=== PATIENT | female | born 1955 | race Caucasian/White ===

== ENCOUNTER 2017-04-09 18:12 | Emergency (ER) | payer OTHER ==
[2017-04-09 19:12] LABS: BASOPHILS % 0.5 (0.0-1.5); EOSINOPHILS % 0.9 % (0.0-6.8); MEAN CORPUSCULAR VOLUME 82.2 fl (80.0-100.0); MONOCYTES % 5.7 % (0.0-11.0); NEUTROPHILS # 6.5 # k/uL (1.4-7.7)
[2017-04-09 19:25] LABS: eGFR (African) > 60; eGFR (Non-African) > 60
--- NOTE | 2017-04-09 19:28 | Diagnostic Imaging Report ---
[facility] [address] [facility].[address] [address] Report Submission Date: Apr 09, 2017 7:15:08 PM CDT Patient Study Name: REMEDIOS MENDIOLA Date: Apr 09, 2017 6:52:00 PM CDT Modality Type: CT\SR Gender: F Description: CT BRAIN W/O CONTRAST : 57 Institution: [facility] Physician: BROCK ALCALA (INVOICE CLASSIFICATION CLERK) - ER Computed tomography of the head without contrast History: Altered mental status Findings: Transverse brain sections are obtained without contrast revealing mild cerebral atrophy.. Benz white differentiation is intact. There is no intracranial hemorrhage, mass lesion, fluid collection, or skull lesion. Visualized sinuses and mastoid air cells are clear. Impression: Mild cerebral atrophy. Electronically signed on Apr 09, 2017 7:15:08 PM CDT by: Lisandro GOSS
--- NOTE | 2017-04-09 19:42 | ED Physician Documentation ---
General Adult - HISTORIAN Historian: patient - HPI Stated Complaint: hot and cold flashes Chief Complaint: General Adult Further Comments: yes (62 year old female presents with complaints of chills, not feelng well, poor blood sugar control x 3 days. Visiting [place] for her mother in law's which she did not attend "I didn't feel well". Patient lives in [place]. PCP in [place]. Poor medical case manager, old records reviewed.) - ROS CONST: weakness, chills. denies: sweating, recent illness, weight loss EYES/ENT: none CVS/RESP: none GI/: none MS/SKIN/LYMPH: other (pain all over). denies: none, calf pain, neck pain, joint pain, leg swelling, rash, swollen glands, leg pain, back pain, ankle swelling NEURO/PSYCH: denies: headache, fainting, dizziness, tingling, numbness, difficulty walking, difficulty with speech, anxiety, depression, other - PAST HX Past History: hypertension, other (Fibromyalgia, neuropathy, depression, anxiety ) Other History: diabetes Type 2 Surgeries/Procedures: hysterectomy Allergies/Adverse Reactions: Allergies Allergy/AdvReac Type Severity Reaction Status Date / Time No Known Allergies Allergy Verified 11/04/14 09:16 Home Medications: Ambulatory Orders Medication Instructions Recorded Aripiprazole [Abilify] 5 mg PO DAILY 04/09/17 Baclofen [Baclofen] 10 mg PO TID PRN 04/09/17 Chlorthalidone [Thalitone] 25 mg PO DAILY 04/09/17 Cyclobenzaprine HCl [Flexeril] 5 mg PO TID 04/09/17 Fluticasone/Vilanterol [Breo 1 puff INH DAILY 04/09/17 Ellipta 100-25 Mcg INH] Hydroxyzine HCl 50 mg PO TID 04/09/17 Insulin Detemir [Levemir Flex-Pen] 0 unit SQ HS 04/09/17 Levothyroxine Sodium [Unithroid] 88 mcg PO DAILY 04/09/17 Liraglutide [Victoza 2-Jer] 0.6 mg SQ DAILY 04/09/17 Lisinopril [Zestril] 40 mg PO DAILY 04/09/17 Meloxicam [Mobic] 15 mg PO DAILY 04/09/17 Mometasone Furoate [Nasonex] 17 gm NS DAILY 04/09/17 Pregabalin [Lyrica] 300 mg PO BID 04/09/17 Simvastatin [Zocor] 40 mg PO HS 04/09/17 Tizanidine HCl [Zanaflex] 4 mg PO QID 04/09/17 Trazodone HCl [Desyrel] 100 mg PO DAILY 04/09/17 Venlafaxine HCl [Effexor Xr] 75 mg PO DAILY 04/09/17 traMADol HCL [Ultram] 50 mg PO QID PRN 04/09/17 - SOCIAL HX Smoking History: cigarettes Drug Use: cocaine (hx abuse), heroin (hx abuse), marijuana - FAMILY HX Family History: No - VITAL SIGNS Vital Signs: Vital Signs Temp Pulse Resp BP Pulse Ox 98.4 F 67 14 140/85 98 04/09/17 19:13 04/09/17 19:13 04/09/17 19:13 04/09/17 19:13 04/09/17 19:13 - REVIEWED ASSESSMENTS Nursing Assessment Reviewed: Yes Vitals Reviewed: Yes Progress - Progress Progress: Lab results reviewed with patient, reassurance given. Instructed patient to smoke Marijuana with her prescription medications. ED Results Lab/Radiology - Lab Results Lab Results: Lab Results 04/09/17 04/09/17 04/09/17 18:55 18:55 18:55 WBC 9.60 K/ul K/ul (4.00-12.00) RBC 5.24 M/ul H M/ul (3.90-5.20) Hgb 14.7 g/dL g/dL (12.0-16.0) Hct 43.1 % % (34.5-46.5) MCV 82.2 fl fl (80.0-100.0) MCH 28.0 pg pg (28.0-34.0) MCHC 34.1 g/dL g/dL (30.0-36.0) RDW 13.1 % % (11.3-14.3) Plt Count 197 K/mm3 K/mm3 (130-400) Neut % (Auto) 67.8 % % (39.0-79.0) Lymph % (Auto) 23.9 % % (16.0-50.0) Nuckolls % (Auto) 5.7 % % (0.0-11.0) Eos % (Auto) 0.9 % % (0.0-6.8) Baso % (Auto) 0.5 (0.0-1.5) Neut # (Auto) 6.5 # k/uL # k/uL (1.4-7.7) Lymph # (Auto) 2.3 # k/uL # k/uL (0.6-4.0) Nuckolls # (Auto) 0.6 # k/uL # k/uL (0.0-0.9) Eos # (Auto) 0.1 # k/uL # k/uL (0.0-0.6) Baso # (Auto) 0.0 # k/uL # k/uL (0.0-0.5) Reactive Lymphs % 1.2 % % (0.0-5.0) Reactive Lymphs # 0.1 # k/uL # k/uL (0.0-0.8) Sodium 136 mmol/L mmol/L (136-145) Potassium 3.6 mmol/L mmol/L (3.5-5.0) Chloride 99 mmol/L mmol/L (98-110) Carbon Dioxide 32 mmol/L mmol/L (20-32) BUN 11 mg/dL mg/dL (10-26) Creatinine 0.7 mg/dL mg/dL (0.4-1.5) Est GFR ( Amer) > 60 (60 - ) Est GFR (Non-Af Amer) > 60 (60 - ) Glucose 115 mg/dL H mg/dL (70-99) Calcium 9.4 mg/dL mg/dL (8.5-10.5) Total Bilirubin 0.3 mg/dL mg/dL (0.2-1.2) AST 20 U/L U/L (0-41) ALT 13 U/L U/L (0-45) Alkaline Phosphatase 71 U/L U/L (46-116) Troponin I < 0.03 ng/mL L ng/mL (0.03-0.06) Total Protein 6.9 g/dL g/dL (6.0-8.5) Albumin 4.5 g/dL g/dL (3.0-5.5) Ethyl Alcohol < 10.0 MG/DL MG/DL (<10.0) - Orders Orders: ED Orders Category Date Time Status Place IV Lock 1T Care 04/09/17 18:[address] BRAIN W/O CONTRAST Stat Exams 04/09/17 Completed CBC/PLATELET/DIFF Stat Lab 04/09/17 18:55 Completed CMP Stat Lab 04/09/17 18:55 Completed ETHANOL MEDICAL USE ONLY Stat Lab 04/09/17 18:55 Completed TROPONIN I (cTnI) Stat Lab 04/09/17 18:55 Completed UA W/MICRO IF INDICATED Stat Lab 04/09/17 18:25 Ordered Urine drug screen [DRUG SCREEN URINE MEDICAL ONLY] Stat Lab 04/09/17 Ordered EKG WITH COMPARISON Stat Ther 04/09/17 18:25 Completed General Adult Physical Exam - PHYSICAL EXAM GENERAL APPEARANCE: mild distress EENT: eye inspection normal, ENT inspection normal, pharynx normal, no signs of dehydration, DAVE, no nystagmus, TM's nml RESPIRATORY: no resp distress, chest non-tender, breath sounds normal CVS: reg rate & rhythm, heart sounds normal, equal pulses, no murmur, no gallop , PMI nml, no JVD, no friction rub, 24 ABDOMEN: soft, no organomegaly, normal bowel sounds, no abdominal bruit, no distension SKIN: normal color, warm/dry, NR, INT, PAL, DR EXTREMITIES: non-tender, normal range of motion, no evidence of injury, no edema , J, [employer] NEURO: motor nml, sensation nml, mood/affect nml, other (oriented x 2) Discharge Clincal Impression: Anxiety Referrals: Primary Doctor,No [Primary Care Provider] - 2 Days Additional Instructions: Ok to return home Rest No marijuana with your prescription medications. See your primary care doctor on arrival home. Home Medications: Ambulatory Orders Aripiprazole [Abilify] 5 mg PO DAILY 04/09/17 Baclofen [Baclofen] 10 mg PO TID PRN 04/09/17 Chlorthalidone [Thalitone] 25 mg PO DAILY 04/09/17 Cyclobenzaprine HCl [Flexeril] 5 mg PO TID 04/09/17 Fluticasone/Vilanterol [Breo Ellipta 100-25 Mcg INH] 1 puff INH DAILY 04/09/17 Hydroxyzine HCl 50 mg PO TID 04/09/17 Insulin Detemir [Levemir Flex-Pen] 0 unit SQ HS 04/09/17 Levothyroxine Sodium [Unithroid] 88 mcg PO DAILY 04/09/17 Liraglutide [Victoza 2-Jer] 0.6 mg SQ DAILY 04/09/17 Lisinopril [Zestril] 40 mg PO DAILY 04/09/17 Meloxicam [Mobic] 15 mg PO DAILY 04/09/17 Mometasone Furoate [Nasonex] 17 gm NS DAILY 04/09/17 Pregabalin [Lyrica] 300 mg PO BID 04/09/17 Simvastatin [Zocor] 40 mg PO HS 04/09/17 Tizanidine HCl [Zanaflex] 4 mg PO QID 04/09/17 Trazodone HCl [Desyrel] 100 mg PO DAILY 04/09/17 Venlafaxine HCl [Effexor Xr] 75 mg PO DAILY 04/09/17 traMADol HCL [Ultram] 50 mg PO QID PRN 04/09/17 Condition: Stable Disposition: 01 HOME, SELF-CARE Decision to Admit: NO Decision Time: 19:40
[2017-04-09 20:08] VITALS: BP 149/91
[2017-04-10 05:31] LABS: APPEARANCE,URINE CLEAR (CLEAR); COLOR,URINE YELLOW (YELLOW); OCCULT BLOOD,URINE NEGATIVE (NEGATIVE); UROBILINOGEN URINE 0.2 Eu (0.2-1.0)
[2017-04-10 05:32] LABS: AMPHETAMINE NEGATIVE ng/mL (<1000); BARBITURATES NEGATIVE ng/mL (<300); CANNABINOIDS NON NEGATIVE ng/mL (< 50); COCAINE NEGATIVE ng/mL (<150); METHAMPHETAMINE NEGATIVE ng/mL (<1000); METHYLENEDIOXYMETHAMPHETAMINE NEGATIVE ng/mL (<500); MORPHINE NEGATIVE ng/mL (<300)
== END 2017-04-09 20:07 | disposition home or self-care (01) ==
LOC: ED 18:12
DX: F41.9 Anxiety disorder, unspecified (principal)
CPT/HCPCS: 70450; 80053; 80320; 80377; 81002; 84484; 85025; 99283; G0480; G0481; S1016